=== PATIENT | female | born 1970 | race Native Hawaiian/Other Pacific Islander ===

== ENCOUNTER 2017-05-16 11:52 | Outpatient (CLI) | payer OTHER ==
[2017-05-16 12:40] LABS: PLATELET COUNT 281 K/uL (152-353)
== END 2017-05-16 12:55 | disposition home or self-care (01) ==
LOC: LABW 11:52
PROVIDERS: Plastic Surgery
DX: Z01.818 Encounter for other preprocedural examination (principal)
CPT/HCPCS: 36415; 81000; 85027

== ENCOUNTER 2018-07-18 11:22 | Outpatient (CLI) | payer OTHER, BC ==
[2018-07-18 12:04] LABS: POTASSIUM 3.7 mmol/L (3.6-5.2)
== END 2018-07-18 23:15 | disposition home or self-care (01) ==
LOC: LABW 11:22
PROVIDERS: Orthopaedic Surgery
DX: Z01.818 Encounter for other preprocedural examination (principal); M12.9 Arthropathy, unspecified
CPT/HCPCS: 36415; 80048

== ENCOUNTER 2021-10-02 10:02 | Outpatient (CLI) | payer OTHER, BC | END 2021-10-02 19:58 | disposition home or self-care (01) | LOC: MAMMO 10:02 | PROVIDERS: ATTEND Obstetrics & Gynecology | DX: Z12.31 Encounter for screening mammogram for malignant neoplasm of breast (principal) ==

== ENCOUNTER 2022-03-16 06:03 | Outpatient (CLI) | payer OTHER, BC ==
[2022-03-16 07:39] LABS: PLATELET COUNT 285 K/uL (152-353)
[2022-03-16 07:46] LABS: POTASSIUM 3.5 mmol/L (3.6-5.2)
== END 2022-03-16 20:27 | disposition home or self-care (01) ==
LOC: LABW 06:03
PROVIDERS: ATTEND Nurse Practitioner Obstetrics & Gynecology
DX: R23.2 Flushing (principal); R61 Generalized hyperhidrosis; N89.8 Other specified noninflammatory disorders of vagina; F52.0 Hypoactive sexual desire disorder; E03.8 Other specified hypothyroidism; Z79.890 Hormone replacement therapy
CPT/HCPCS: 36415; 80053; 82248; 82465; 82626; 82670; 83001; 84144; 84402; 84403; 84436; 84443; 84479; 85027

== ENCOUNTER 2022-07-09 07:04 | Outpatient (CLI) | payer OTHER, BC | END 2022-07-09 19:20 | disposition home or self-care (01) | LOC: LABW 07:04 | PROVIDERS: ATTEND Nurse Practitioner Obstetrics & Gynecology | DX: N95.8 Other specified menopausal and perimenopausal disorders (principal); R61 Generalized hyperhidrosis; R23.2 Flushing; Z79.890 Hormone replacement therapy | CPT/HCPCS: 36415; 80076; 82626; 82670; 83001; 84144; 84402; 84403 ==

== ENCOUNTER 2022-08-30 16:28 | Emergency (ER) | payer OTHER, BC ==
[~2022-08-30] VITALS: Ht 162.6 cm; Wt 63.5 kg
[2022-08-30 16:30] VITALS: TEMP 98.4
[2022-08-30 17:07] LABS: PLATELET COUNT 300 K/uL (152-353)
[2022-08-30 18:00] VITALS: BP 137/72
== END 2022-08-30 19:18 | disposition short-term general hospital (02) ==
LOC: ED 16:28
PROVIDERS: Emergency Medicine Emergency Medical Services
DX: I21.4 Non-ST elevation (NSTEMI) myocardial infarction (principal); F17.210 Nicotine dependence, cigarettes, uncomplicated
CPT/HCPCS: 36591; 80053; 83735; 84484; 85027; 85379; 85610; 85730; 93005; 96360; 96361; 99284; J1650